=== PATIENT | female | born 1965 | race Caucasian/White ===

== ENCOUNTER 2018-03-10 06:53 | Day surgery (SDC) | payer OTHER ==
[2018-03-10] MEDS ORDERED: CEFAZOLIN 2 GM/50 ML (PMX) 50 ML IVPB (10:30)
[2018-03-10] MEDS ORDERED: SOD CHLORIDE 0.9% 1,000 ML IV (10:30)
[2018-03-10 11:40] LABS: ADD MAN DIFF? NO
[2018-03-10 11:54] LABS: BASOPHILS % 0.7 % (0.0-2.0); EOSINOPHILS # 0.1 10^3/ul (0.0-0.5); EOSINOPHILS % 1.5 % (0.0-7.0); HEMATOCRIT 48.8 % (37.0-47.0); HEMOGLOBIN 15.9 g/dl (12.0-16.0); LYMPHOCYTES # 1.9 10^3/ul (0.8-2.9); LYMPHOCYTES % 35.6 % (15.0-51.0); MEAN CORPUSCULAR HEMOGLOBIN 27.9 pg (29.0-33.0); MEAN CORPUSCULAR HGB CONC 32.6 g/dl (32.0-37.0); MEAN CORPUSCULAR VOLUME 85.8 fl (82.0-101.0); MEAN PLATELET VOLUME 11.1 fl (7.4-10.4); MONOCYTE # 0.4 10^3/ul (0.3-0.9); MONOCYTES % 6.7 % (0.0-11.0); NEUTROPHILS % 55.3 % (39.0-77.0); PLATELET COUNT 216 10^3/UL (140-415); RED BLOOD COUNT 5.69 10^6/ul (4.20-5.40); RED CELL DISTRIBUTION WIDTH 13.1 % (11.5-14.5)
[2018-03-10 11:54] LABS: WHITE BLOOD COUNT 5.4 10^3/ul (4.8-10.8)
[2018-03-10 11:59] LABS: PROTIME 12.2 Sec (11.9-14.9)
[2018-03-10 12:00] LABS: PARTIAL THROMBOPLASTIN TIME 28.7 Sec (25.0-35.0)
[2018-03-10 12:51] LABS: ANION GAP 16 (8-16); CARBON DIOXIDE 30 mmol/L (21-31); CHLORIDE 105 mmol/L (97-110); GLUCOSE 102 mg/dl (70-220)
[2018-03-10 12:52] LABS: ALANINE AMINOTRANSFERASE 45 IU/L (13-69); ALBUMIN 4.5 g/dl (3.3-4.9); ALBUMIN/GLOBULIN RATIO 1.12; ALKALINE PHOSPHATASE 112 IU/L (42-121); ASPARTATE AMINO TRANSFERASE 35 IU/L (15-46); BILIRUBIN,INDIRECT 0.7 mg/dl (0-1.1); BILIRUBIN,TOTAL 0.7 mg/dl (0.2-1.3); TOTAL PROTEIN 8.5 g/dl (6.1-8.1)
[2018-03-10 12:58] LABS: BLOOD UREA NITROGEN 11 mg/dl (7-20); CALCIUM 9.2 mg/dl (8.4-10.2); CREATININE 0.63 mg/dl (0.44-1.00); SODIUM 147 mmol/L (135-144)
[2018-03-10] MEDS ORDERED: CEFAZOLIN 1 GM INJ (13:19)
[2018-03-10] MEDS ORDERED: ROCURONIUM 50 MG INJ (13:19)
[2018-03-10] MEDS ORDERED: FENTAnyl 50 MCG/ML VIAL (13:19)
[2018-03-10] MEDS ORDERED: MIDAZOLAM 1 MG/ML 2 ML INJ (13:19)
[2018-03-10] MEDS ORDERED: PROPOFOL 20 ML (13:19)
[2018-03-10] MEDS ORDERED: ISOSULFAN BLUE 1% 5 ML INJ SC (13:29)
[2018-03-10] MEDS ORDERED: HYDROmorphONE 2 MG/ML SYG (14:12)
[2018-03-10] MEDS ORDERED: PHENYLephrine (100 MCG/ML) 5ML SYG ×2 (14:18→14:29)
[2018-03-10] MEDS ORDERED: KETOROLAC 30 MG INJ (14:21)
[2018-03-10] MEDS ORDERED: SUGAMMADEX SODIUM 200 MG/2 ML VIAL IV (14:21)
[2018-03-10] MEDS ORDERED: DEXAMETHASONE 4 MG/ML 1 ML INJ (14:21)
[2018-03-10] MEDS ORDERED: METOCLOPRAMIDE 10 MG INJ (14:21)
[2018-03-10] MEDS ORDERED: ONDANSETRON 4 MG INJ (14:21)
[2018-03-10] MEDS ORDERED: HYDROCODONE/APAP (7.5/325) TAB PO (14:30)
[2018-03-10] MEDS ORDERED: ACETAMINOPHEN 1000MG/100ML IV 100 ML (14:31)
[2018-03-10] MEDS ORDERED: DIPHENHYDRAMINE 50 MG INJ IV (15:00)
[2018-03-10] MEDS ORDERED: FENTAnyl 50 MCG/ML VIAL IV ×3 (15:00)
[2018-03-10] MEDS ORDERED: ONDANSETRON 4 MG INJ IV (15:00)
[2018-03-10] MEDS ORDERED: EPHEDrine SULFATE 50 MG/5 ML SYG IV (15:00)
[2018-03-10] MEDS ORDERED: HYDROmorphONE (0.2 MG/ML) 10ML SYG IV ×3 (15:00)
[2018-03-10] MEDS ORDERED: METOCLOPRAMIDE 10 MG INJ IV (15:00)
[2018-03-10] MEDS ORDERED: MEPERIDINE 25 MG INJ IV (15:00)
[2018-03-10] MEDS ORDERED: OXYCODONE/ACETAMINOPHEN (5/325) TAB PO ×2 (15:00)
[2018-03-10] MEDS ORDERED: LABETALOL HCL 20MG INJ IV (15:00)
[2018-03-10] MEDS: hydrALAzine 20 MG INJ IV (15:34)
== END 2018-03-10 17:26 | disposition home or self-care (01) ==
LOC: SDS 06:53
DX: D05.12 Intraductal carcinoma in situ of left breast (principal); E78.5 Hyperlipidemia, unspecified
CPT/HCPCS: 19301; 71045; 80053; 84703; 85025; 85610; 85730; 88307; 93005

== ENCOUNTER 2018-04-28 08:23 | Day surgery (SDC) | payer OTHER ==
[2018-04-28] MEDS: SOD CHLORIDE 0.9% 1,000 ML IV (06:30)
[~2018-04-28 08:23] MED LIST: ACETAMINOPHEN 1000 MG/100 ML IVPB; EPHEDrine SULFATE 50 MG/5 ML SYG
[2018-04-28 09:27] LABS: ADD MAN DIFF? NO
[2018-04-28 09:29] LABS: WHITE BLOOD COUNT 5.9 10^3/ul (4.8-10.8)
[2018-04-28 09:29] LABS: BASOPHIL # 0.1 10^3/ul (0.0-0.1); BASOPHILS % 0.8 % (0.0-2.0); EOSINOPHILS # 0.1 10^3/ul (0.0-0.5); EOSINOPHILS % 2.4 % (0.0-7.0); HEMATOCRIT 45.4 % (37.0-47.0); HEMOGLOBIN 15.4 g/dl (12.0-16.0); LYMPHOCYTES # 2.2 10^3/ul (0.8-2.9); LYMPHOCYTES % 36.9 % (15.0-51.0); MEAN CORPUSCULAR HEMOGLOBIN 28.8 pg (29.0-33.0); MEAN CORPUSCULAR HGB CONC 33.9 g/dl (32.0-37.0); MEAN PLATELET VOLUME 10.3 fl (7.4-10.4); MONOCYTE # 0.4 10^3/ul (0.3-0.9); MONOCYTES % 7.1 % (0.0-11.0); NEUTROPHIL # 3.1 10^3/ul (1.6-7.5); NEUTROPHILS % 52.6 % (39.0-77.0); PLATELET COUNT 231 10^3/UL (140-415); RED BLOOD COUNT 5.34 10^6/ul (4.20-5.40)
[2018-04-28 09:49] LABS: INR 0.82; PARTIAL THROMBOPLASTIN TIME 28.5 Sec (25.0-35.0); PROTIME 11.3 Sec (11.9-14.9); PT RATIO 0.9
[2018-04-28 09:52] LABS: ALANINE AMINOTRANSFERASE 33 IU/L (13-69); ALBUMIN 4.7 g/dl (3.3-4.9); ALKALINE PHOSPHATASE 95 IU/L (42-121); ANION GAP 13 (8-16); ASPARTATE AMINO TRANSFERASE 48 IU/L (15-46); BILIRUBIN,INDIRECT 0.5 mg/dl (0-1.1); BILIRUBIN,TOTAL 0.5 mg/dl (0.2-1.3); BLOOD UREA NITROGEN 20 mg/dl (7-20); CALCIUM 9.3 mg/dl (8.4-10.2); CARBON DIOXIDE 26 mmol/L (21-31); CHLORIDE 108 mmol/L (97-110); CREATININE 0.63 mg/dl (0.44-1.00); GLUCOSE 111 mg/dl (70-220); POTASSIUM 4.3 mmol/L (3.5-5.1); SODIUM 143 mmol/L (135-144); TOTAL PROTEIN 8.6 g/dl (6.1-8.1)
[2018-04-28] MEDS ORDERED: DIPHENHYDRAMINE 50 MG INJ IV (12:00)
[2018-04-28] MEDS ORDERED: FENTAnyl 50 MCG/ML VIAL IV ×2 (12:00)
[2018-04-28] MEDS ORDERED: HYDROmorphONE 1 MG/5 ML IV SYRINGE IV ×3 (12:00)
[2018-04-28] MEDS ORDERED: PROCHLORPERAZINE 10 MG INJ IV (12:00)
[2018-04-28] MEDS ORDERED: MEPERIDINE 25 MG INJ IV (12:00)
[2018-04-28] MEDS ORDERED: FENTAnyl 50 MCG/ML VIAL (12:17)
[2018-04-28] MEDS ORDERED: MIDAZOLAM 1 MG/ML 2 ML INJ (12:17)
[2018-04-28] MEDS ORDERED: LIDOCAINE 2% (SDV) 5 ML INJ (12:29)
[2018-04-28] MEDS ORDERED: CEFAZOLIN 1 GM INJ (12:29)
[2018-04-28] MEDS ORDERED: PROPOFOL 20 ML (12:29)
[2018-04-28] MEDS ORDERED: ONDANSETRON 4 MG INJ (12:40)
[2018-04-28] MEDS ORDERED: FAMOTIDINE 20 MG INJ (12:40)
[2018-04-28] MEDS ORDERED: DEXAMETHASONE 4 MG/ML 1 ML INJ (12:40)
[2018-04-28] MEDS ORDERED: HYDROCODONE/APAP (7.5/325) TAB PO (13:30)
[2018-04-28] MEDS: CEFAZOLIN 2 GM/50 ML (PMX) 50 ML IVPB (13:55)
[2018-04-28] MEDS ORDERED: OXYCODONE/ACETAMINOPHEN (5/325) TAB PO (14:00)
[2018-04-28] MEDS: hydrALAzine 20 MG INJ IV (14:03)
[2018-04-28] MEDS: FENTAnyl 50 MCG/ML VIAL IV (14:11)
[2018-04-28] MEDS: LABETALOL HCL 20MG INJ IV (14:18)
[2018-04-28] MEDS: ONDANSETRON 4 MG INJ IV (14:38)
== END 2018-04-28 16:26 | disposition home or self-care (01) ==
LOC: SDS 08:23
DX: N60.92 Unspecified benign mammary dysplasia of left breast (principal)
CPT/HCPCS: 19301; 80053; 84703; 85025; 85610; 85730; 88307; 93005